=== PATIENT | female | born 1965 | race Caucasian/White ===

== ENCOUNTER 2023-03-19 07:36 | Day surgery (SDC) | payer OTHER ==
[2023-03-15 13:54] VITALS: BMI 25.3
[2023-03-19] MEDS ORDERED: Lidocaine 1% PF 5 ML VIAL ONE (10:17)
[2023-03-19] MEDS ORDERED: PROPOFOL 20 ML ONE (10:17)
[2023-03-19] MEDS ORDERED: Ibuprofen 600 MG TAB PO SCH (10:45)
== END 2023-03-19 11:34 | disposition home or self-care (01) ==
LOC: CSHSDC 07:36
PROVIDERS: ATTEND Internal Medicine Gastroenterology
PROC: 0DB68ZX Excision of Stomach, Via Natural or Artificial Opening Endoscopic, Diagnostic (ICD-10-PCS; principal; 2023-03-19)
DX: K29.50 Unspecified chronic gastritis without bleeding (principal); K31.A19 Gastric intestinal metaplasia without dysplasia, unspecified site; K31.89 Other diseases of stomach and duodenum; K21.9 Gastro-esophageal reflux disease without esophagitis; J44.9 Chronic obstructive pulmonary disease, unspecified; E03.9 Hypothyroidism, unspecified; K25.9 Gastric ulcer, unspecified as acute or chronic, without hemorrhage or perforation; Z79.899 Other long term (current) drug therapy
CPT/HCPCS: 76700; 88305; 88312; 88342; J2704

== ENCOUNTER 2024-01-06 17:57 | Emergency (ER) | payer OTHER ==
[2024-01-06] MEDS ORDERED: Dexamethasone 10 MG/ML VIAL ONE (18:22)
[2024-01-06] MEDS ORDERED: Magnesium 2 GM/50 ML BAG (IN WATER) ONE (18:23)
[2024-01-06] MEDS ORDERED: Albuterol 2.5 MG (3 mL) NEB ONE (18:42)
[2024-01-06] MEDS ORDERED: Ipratropium/Albuterol 3 ML NEB ONE (18:42)
[2024-01-06 18:53] LABS: #Basophils 0.07 10x3/uL (0.0-0.2); #Eosinphils 0.29 10x3/uL (0.0-0.5); #Monocytes 0.92 10x3/uL (0.0-1.1); #Neutrophils 7.31 10x3/uL (1.5-8.4); %Basophils 0.7 % (0.0-2.0); %Eosinophils 3.1 % (0.0-6.0); %Lymphocytes 7.3 % (18.0-47.0); %Monocytes 9.9 % (0.0-10.0); %Neutrophils 78.3 % (40.0-75.0); Hematocrit 39.5 % (34.9-44.5); Hemoglobin 12.8 g/dL (12.0-15.5); Mean Corpuscular HGB CONC 32.4 g/dL (32.0-36.0); Mean Corpuscular Hemoglobin 29.1 pg (27.0-33.0); Mean Corpuscular Volume 89.8 fl (81.6-98.3); Mean Platelet Volume 9.2 fl (7.4-10.4); Platelet Count 341 10x3/uL (150-450); White Blood Cell (WBC) Count 9.3 10x3/uL (3.5-10.5)
[2024-01-06 19:09] LABS: Troponin I Less than 0.010 ng/mL (< 0.028)
[2024-01-06 20:49] LABS: Influenza A by NAA Not Detected (NotDetected); Influenza B by NAA Not Detected (NotDetected); SARS-CoV-2 NAA Rapid Test Not Detected (NotDetected)
[2024-01-06 20:51] LABS: ALT (SGPT) 13 U/L (8-55); AST (SGOT) 19 U/L (5-34); Alkaline Phosphatase 59 U/L (40-110); Anion Gap 15 mmol/L (10-20); BUN (Urea Nitrogen) 7 mg/dL (9.8-20.1); Bilirubin, Total 0.4 mg/dL (0.2-1.2); Calc. Creatinine Clearance 0 mL/min (70-130); Calcium 9.7 mg/dL (7.8-10.44); Carbon Dioxide 27 mmol/L (22-29); Chloride 100 mmol/L (98-107); Estimated GFR 90; Globulin 3.1 g/dL (2.4-3.5); Glucose 99 mg/dL (70-105); Lipase 18 U/L (8-78); Potassium 4.1 mmol/L (3.5-5.1); Protein, Total 7.1 g/dL (6.0-8.3); Sodium 138 mmol/L (136-145)
== END 2024-01-06 21:00 | disposition home or self-care (01) ==
LOC: CSHERS 17:57
DX: J44.1 Chronic obstructive pulmonary disease with (acute) exacerbation (principal)
CPT/HCPCS: 71045; 80053; 83690; 83880; 84484; 85025; 93005; 94644; 94760; 96374; 96375; J1100; J3475; J7611; J7620

== ENCOUNTER 2024-01-21 15:17 | Outpatient (CLI) | payer OTHER ==
[2024-01-21 17:40] LABS: ALV-art Gradient 85.435 mmHg (0-20); Analyzer IN Cardio CS ER; Base Excess (BEa) 5.9 mEq/L (-2.0 to +3.0); CO2 Tension 58.9 mmHg (35.0-45.0); Calcium, Ionized (arterial) 1.19 mmol/L (1.12-1.30); Carboxyhemoglobin (COHb) 0.8 gm% (0.0-3.0); Hematocrit-ABG 40 % (36.0-47.0); Hemoglobin (Hb) 13.7 g/dL (12.0-16.0); O2 Tension (PaO2), arterial 69.1 mmHg (80.0-100.0); Puncture Site RRA; pH, Arterial 7.366 (7.35-7.45)
== END 2024-01-21 15:18 | disposition home or self-care (01) ==
LOC: CSHCT 15:17
PROVIDERS: ATTEND Internal Medicine
DX: J44.9 Chronic obstructive pulmonary disease, unspecified (principal); Z87.891 Personal history of nicotine dependence; J98.4 Other disorders of lung
CPT/HCPCS: 36600; 71271; 82805; 94060; 94664; 94726; 94729; 94760

== ENCOUNTER 2024-03-07 05:33 | Emergency (ER) | payer OTHER ==
[2024-03-07] MEDS ORDERED: Ondansetron PF 4 MG/2 ML Vial ONE (05:57)
[2024-03-07 06:27] LABS: #Basophils 0.08 10x3/uL (0.0-0.2); #Eosinphils 0.59 10x3/uL (0.0-0.5); #Monocytes 0.56 10x3/uL (0.0-1.1); #Neutrophils 5.82 10x3/uL (1.5-8.4); %Basophils 0.9 % (0.0-2.0); %Eosinophils 6.9 % (0.0-6.0); %Lymphocytes 16.2 % (18.0-47.0); %Monocytes 6.6 % (0.0-10.0); %Neutrophils 68.5 % (40.0-75.0); Hematocrit 39.7 % (34.9-44.5); Hemoglobin 12.9 g/dL (12.0-15.5); Mean Corpuscular HGB CONC 32.5 g/dL (32.0-36.0); Mean Corpuscular Hemoglobin 29.3 pg (27.0-33.0); Mean Platelet Volume 8.7 fL (7.4-10.4); Platelet Count 415 10x3/uL (150-450); RBC Distribution Width 13.1 % (11.5-14.5); Red Blood Cell (RBC) Count 4.41 10x6/uL (3.90-5.03); White Blood Cell (WBC) Count 8.5 10x3/uL (3.5-10.5)
[2024-03-07 06:31] LABS: Bilirubin Neg (Negative); Blood, Urine 50 (Negative); Clarity Slightly Cloudy (Clear); Glucose, Urine (Dipstick) Normal (Negative); Ketone, Urine Negative (Negative); Leukocyte 500 (Negative); Nitrite Negative (Negative); Protein, Urine (Dipstick) 100 mg/dl (Neg-Trace); Specific Gravity, Urine 1.025 (1.005-1.030)
[2024-03-07 06:39] LABS: Bacteria/HPF Rare-Few HPF (None Seen); CAUTI Indications for Culture Pelvic or flank pain; Calcium Oxalate Crystals Rare HPF (None Seen); Mucous/LPF 1+ LPF (<2+); RBC/HPF 0-3 HPF (0-3); WBC/HPF 21-50 HPF (0-3)
[2024-03-07 06:40] LABS: Urine Culture Reflex Yes Yes
[2024-03-07 06:47] LABS: ALT (SGPT) 15 U/L (8-55); AST (SGOT) 14 U/L (5-34); Albumin 4.1 g/dL (3.5-5.0); Alkaline Phosphatase 77 U/L (40-110); Anion Gap 16 mmol/L (10-20); BUN (Urea Nitrogen) 13 mg/dL (9.8-20.1); Bilirubin, Total 0.2 mg/dL (0.2-1.2); Calc. Creatinine Clearance 0 mL/min (70-130); Calcium 9.5 mg/dL (7.8-10.44); Carbon Dioxide 30 mmol/L (22-29); Chloride 101 mmol/L (98-107); Estimated GFR 84; Globulin 2.6 g/dL (2.4-3.5); Glucose 133 mg/dL (70-105); Potassium 3.6 mmol/L (3.5-5.1); Protein, Total 6.7 g/dL (6.0-8.3); Sodium 143 mmol/L (136-145); Troponin I Less than 0.010 ng/mL (< 0.028)
[2024-03-07] MEDS ORDERED: methylPREDNISolone Sod Succ/PF 125 MG/2 ML VIAL ONE (07:46)
[2024-03-07] MEDS ORDERED: cefTRIAXone (ROCEPHIN) 1 GM VIAL ONE (07:46)
== END 2024-03-07 08:50 | disposition home or self-care (01) ==
LOC: CSHERS 05:33
DX: N39.0 Urinary tract infection, site not specified (principal); R53.1 Weakness; R42 Dizziness and giddiness; K21.9 Gastro-esophageal reflux disease without esophagitis; J44.9 Chronic obstructive pulmonary disease, unspecified; Z79.51 Long term (current) use of inhaled steroids; Z79.899 Other long term (current) drug therapy
CPT/HCPCS: 70450; 71046; 80053; 81001; 83735; 83880; 84484; 85025; 87086; 93005; 96374; 96375; J0696; J2405; J2930

== ENCOUNTER 2024-07-24 15:55 | Outpatient (CLI) | payer OTHER | END 2024-07-24 15:56 | disposition home or self-care (01) | LOC: CSHULT 15:55 | PROVIDERS: ATTEND Urology | DX: N20.0 Calculus of kidney (principal) | CPT/HCPCS: 76770 ==